=== PATIENT | male | born 1955 | race Native Hawaiian/Other Pacific Islander ===

== ENCOUNTER 2022-02-12 09:24 | Outpatient (CLI) | payer OTHER | END 2022-02-12 19:36 | disposition home or self-care (01) | LOC: RESP 09:24 | PROVIDERS: ATTEND Internal Medicine | DX: I51.7 Cardiomegaly (principal); J44.9 Chronic obstructive pulmonary disease, unspecified; R42 Dizziness and giddiness; R06.00 Dyspnea, unspecified; I10 Essential (primary) hypertension; Z87.891 Personal history of nicotine dependence; E78.49 Other hyperlipidemia; R06.02 Shortness of breath; E13.65 Other specified diabetes mellitus with hyperglycemia ==

== ENCOUNTER 2022-02-13 08:10 | Outpatient (CLI) | payer OTHER | END 2022-02-13 16:00 | LOC: NM 08:10 | PROVIDERS: ATTEND Internal Medicine | DX: J44.9 Chronic obstructive pulmonary disease, unspecified (principal); R42 Dizziness and giddiness; R06.09 Other forms of dyspnea; Z87.891 Personal history of nicotine dependence; E78.2 Mixed hyperlipidemia; R06.02 Shortness of breath; E11.9 Type 2 diabetes mellitus without complications; I11.9 Hypertensive heart disease without heart failure; Z09 Encounter for follow-up examination after completed treatment for conditions other than malignant neoplasm | CPT/HCPCS: A9500 ==

== ENCOUNTER 2022-08-19 10:14 | Outpatient (CLI) | payer OTHER | END 2022-08-19 20:01 | disposition home or self-care (01) | LOC: US 10:14 | PROVIDERS: ATTEND Internal Medicine | DX: E03.8 Other specified hypothyroidism (principal) ==